=== PATIENT | female | born 1990 | race Caucasian/White ===

== ENCOUNTER 2020-05-01 05:32 | Inpatient (IN) | payer BC ==
[2020-05-01 06:09] VITALS: BMI 40.1
[2020-05-01] MEDS ORDERED: Promethazine HCl 25 MG/ML VIAL IM PRN ×3 (06:10→20:38)
[2020-05-01] MEDS ORDERED: Butorphanol Tartrate 1 MG/ML VIAL SLOW IVP PRN (06:10)
[2020-05-01] MEDS ORDERED: Carboprost 250 MCG/ML AMP IM PRN (06:10)
[2020-05-01] MEDS ORDERED: Diphenoxylate HCl/Atropine Tablet PO PRN (06:10)
[2020-05-01] MEDS ORDERED: Lidocaine 1% (PF) 30 ML VIAL SC PRN (06:10)
[2020-05-01] MEDS ORDERED: Ondansetron PF 4 MG/2 ML Vial IVP PRN ×3 (06:10→20:38)
[2020-05-01] MEDS ORDERED: Misoprostol 200 MCG TAB PR PRN (06:10)
[2020-05-01] MEDS ORDERED: HYDROcodone/Acetaminophen 5/325 mg Tablet PO PRN ×3 (06:10→20:38)
[2020-05-01] MEDS ORDERED: Methylergonovine 0.2 MG/ML VIAL IM PRN (06:10)
[2020-05-01] MEDS ORDERED: Acetaminophen 500 MG TAB PO PRN (06:10)
[2020-05-01] MEDS ORDERED: hydrALAZINE 20 MG/ML VIAL SLOW IVP PRN ×2 (06:10→20:38)
[2020-05-01] MEDS ORDERED: Ibuprofen 800 MG TAB PO PRN (06:10)
[2020-05-01] MEDS: Lactated Ringer's 1,000 ML IV SCH ×2 (06:15→21:19)
[2020-05-01] MEDS ORDERED: NS w/ Oxytocin 30 units 500 ML IVPB PRN (06:20)
[2020-05-01] MEDS ORDERED: NS w/ Oxytocin 30 units 500 ML IVPB SCH (06:30)
[2020-05-01 06:46] LABS: Mean Corpuscular HGB CONC 35.7 g/dL (32.0-36.0); Mean Corpuscular Hemoglobin 35.7 pg (27.0-33.0); Mean Platelet Volume 11.4 fl (7.4-10.4); Platelet Count 235 10x3/uL (150-450); RBC Distribution Width 11.9 % (11.5-14.5); Red Blood Cell (RBC) Count 3.92 10x6/uL (3.90-5.03); White Blood Cell (WBC) Count 9.3 10x3/uL (3.5-10.5)
[2020-05-01 07:27] LABS: Hep B Surf Ag Non-Reactive S/CO (NonReactive)
[2020-05-01 07:28] LABS: Syphilis Antibody Nonreactive (Nonreactive); Syphilis Antibody Index 0.05 S/CO (<1.00 Non-Reactive)
[2020-05-01 08:17] LABS: HBSAg Index 0.26 S/CO (0-0.99)
[2020-05-01] MEDS ORDERED: Fentanyl 4 mcg/Bup 0.1% Cadd 100 ML ONE ×2 (08:39→16:57)
[2020-05-01] MEDS ORDERED: Acetaminophen 325 MG TAB PO PRN (11:17)
[2020-05-01] MEDS ORDERED: diphenhydrAMINE 50 MG/ML VIAL IVP PRN (11:17)
[2020-05-01] MEDS ORDERED: Lactated Ringer's 500 ML IV PRN (11:17)
[2020-05-01] MEDS ORDERED: Naloxone HCl 0.4 mg/ml Vial IVP PRN ×2 (11:17)
[2020-05-01] MEDS ORDERED: ePHEDrine Sulfate 50 MG/10 ML VIAL SLOW IVP PRN (11:28)
[2020-05-01] MEDS ORDERED: Communication Order-Pharmacy FS SCH (11:30)
[2020-05-01] MEDS ORDERED: Fentanyl 4 mcg/Bupivacaine 0.1% Cassette 100 ML EPIDURAL SCH (11:30)
[2020-05-01] MEDS ORDERED: diphenhydrAMINE 25 MG CAP PO PRN (20:38)
[2020-05-01] MEDS ORDERED: Preparation H Ointment 28 GM TUBE PR PRN (20:38)
[2020-05-01] MEDS ORDERED: Lanolin Ointment 7 GM TUBE TOP PRN (20:38)
[2020-05-01] MEDS ORDERED: Benzocaine-Menthol 82.5 ML CAN TOP PRN (20:38)
[2020-05-01] MEDS ORDERED: Milk Of Magnesia 30 ML UDCUP PO PRN (20:38)
[2020-05-01] MEDS ORDERED: Zolpidem Tartrate 5 MG TAB PO PRN (20:38)
[2020-05-01] MEDS ORDERED: Bisacodyl 10 MG SUPP PR PRN (20:38)
[2020-05-01] MEDS ORDERED: NS / Oxytocin 40 units/1000ml 1,000 ML IV SCH (20:38)
[2020-05-01] MEDS: Ibuprofen 800 MG TAB PO SCH (21:32)
[2020-05-01] MEDS: Docusate Calcium (SURFAK) 240 MG CAP PO SCH (21:32)
[2020-05-02] MEDS: Ibuprofen 800 MG TAB PO SCH ×3 (05:06→22:25)
[2020-05-02] MEDS: Ferrous Sulfate 325 MG TAB PO SCH ×2 (08:25→17:49)
[2020-05-02] MEDS ORDERED: Adacel (T-DAP) 0.5 ML SYRINGE IM ONE (09:00)
[2020-05-02] MEDS: Prenatal Vitamin 1 TAB PO SCH (09:51)
[2020-05-02] MEDS: Docusate Calcium (SURFAK) 240 MG CAP PO SCH ×2 (09:51→22:26)
[2020-05-03] MEDS: Ibuprofen 800 MG TAB PO SCH (04:56)
[2020-05-03 07:27] VITALS: BP 122/72; TEMP 98.3
[2020-05-03] MEDS: Ferrous Sulfate 325 MG TAB PO SCH (07:58)
[2020-05-03] MEDS: Docusate Calcium (SURFAK) 240 MG CAP PO SCH (08:29)
[2020-05-03] MEDS: Prenatal Vitamin 1 TAB PO SCH (08:29)
== END 2020-05-03 11:35 | disposition home or self-care (01) | DRG 807 ==
LOC: CSHSDC 05:32 → CSHLD 05:35 → CSHPP 20:25
PROVIDERS: ADMIT Student in an Organized Health Care Education/Training Program; ATTEND Student in an Organized Health Care Education/Training Program
PROC: 10E0XZZ Delivery of Products of Conception, External Approach (ICD-10-PCS; principal; 2020-05-01)
PROC: 10907ZC Drainage of Amniotic Fluid, Therapeutic from Products of Conception, Via Natural or Artificial Opening (ICD-10-PCS; 2020-05-01)
PROC: 3E033VJ Introduction of Other Hormone into Peripheral Vein, Percutaneous Approach (ICD-10-PCS; 2020-05-01)
DX: O69.1XX0 Labor and delivery complicated by cord around neck, with compression, not applicable or unspecified (principal); Z37.0 Single live birth; Z20.822 Contact with and (suspected) exposure to COVID-19; O99.214 Obesity complicating childbirth; E66.9 Obesity, unspecified; Z3A.40 40 weeks gestation of pregnancy
CPT/HCPCS: 36415; 51702; 84112; 85027; 86780; 86850; 86900; 86901; 87340; 87480; 87510; 87635; 87660; 99285; J2590; U0003; U0005